=== PATIENT | female | born 1950 | race Caucasian/White ===

== ENCOUNTER 2019-11-23 13:16 | Outpatient (CLI) | payer BC, SELFPAY ==
--- NOTE | ~2019-11-23 | CT_ITS ---
EXAMINATION: CT lung screening EXAM DATE: 11/23/2019 14:14 INDICATION: Personal history of nicotine dependence. History of lung cancer. TECHNIQUE: Spiral low dose CT of the chest without contrast. Axial, coronal and sagittal images were reviewed. The dose-length product (DLP) for this examination was 91.78 mGy-cm. The exposure was ta ilored according to patient size (auto mA exposure control), and iterative reconstruction (ASIR) was used as additional dose reduction technique. Comparison is made to prior examination from 10/19/2018. FINDINGS: There is been interval right-sided partial pneumonectomy, previously seen nodule no longer present. Small region of left upper lobe scarring. Triangular-shaped pleural-based right upper lobe nodule measuring 5 mm, unchanged. No suspicious pulmonary nodules. Tracheobronchial tree is patent. There is no mediastinal, hilar or axillary lymphadenopathy. There are no pleural or pericardial e ffusions. There is no pneumothorax. Heart normal in size. No evidence of coronary arterial calc ification. There is mild emphysema. Upper abdomen is unremarkable. There is moderate thoracic spo ndylosis without osteoblastic or osteolytic lesions identified. IMPRESSION: Lung-RADS category 2C, benign appearance or behavior (<1% chance of malignancy); recommen d continued LDCT screening in 1 year. Reviewed, dictated and finalized at location A. IMPRESSION: Lung-RADS category 2C, benign appearance or behavior (<1% chance of malignancy); recommend continued LDCT screening in 1 year.
== END 2019-11-23 13:17 | disposition home or self-care (01) ==
PROVIDERS: PCP Family Medicine; Visit Provider Physician Assistant
DX: Z12.2 Encounter for screening for malignant neoplasm of respiratory organs (principal); Z87.891 Personal history of nicotine dependence
CPT/HCPCS: G0297

== ENCOUNTER → 2020-08-16 13:21 | Outpatient (CLI) | payer BC, SELFPAY ==
--- NOTE | ~2020-08-16 | MM_ITS ---
EXAMINATION: MM screening [facility] BI w marilee HISTORY: Screening TECHNIQUE: Craniocaudal and mediolateral oblique 3-D tomosynthesis images were obtained and synthetic 2-D images were generated. CAD analysis was submitted and interpreted. COMPARISON: Comparison to multiple prior studies sequentially, with oldest reviewed study dated 05/2016. BREAST PARENCHYMAL COMPOSITION: There are scattered areas of fibroglandular density. FINDINGS: There is no evidence of suspicious mass, calcification, or architectural distortion to sugg est malignancy in either breast. There has been no suspicious interval change. IMPRESSION: 1. No mammographic evidence of malignancy. 2. Recommend routine screening mammography in one year. BI-RADS Category 1: Negative Reviewed, dictated and finalized at location A.
== END ==
PROVIDERS: PCP Family Medicine; Visit Provider Family Medicine
DX: Z12.31 Encounter for screening mammogram for malignant neoplasm of breast (principal)
CPT/HCPCS: 77063; 77067

== ENCOUNTER → 2020-12-22 13:18 | Outpatient (CLI) | payer BC, SELFPAY ==
--- NOTE | ~2020-12-22 | CT_ITS ---
EXAMINATION: CT lung screening DATE: 12/22/2020 13:42 INDICATION: Personal history of nicotine dependence, current smoker with 50 pack year history TECHNIQUE: Computed tomography (CT) of the chest was performed without intravenous contrast. The dose -length product (DLP) was 90.97 mGy-cm. Automated exposure control and iterative reconstruction techn Whisk (formerly Zypsee)ue were employed. COMPARISON: 11/23/2019 FINDINGS: There are changes of right lower lobectomy. There is an unchanged 2.4 cm subsolid nodule of the left upper lobe without solid nodular component identified. Smaller, stable subsolid nodules are present in the left upper lobe. No new pulmonary nodules are identified. There is mild emphysema. No pleural effusion or pneumothorax is present. The lungs are free of acute airspace opacities. No path ologically enlarged thoracic lymph nodes are identified. The heart size is normal. There is moderate thoracic spondylosis. IMPRESSION: 1. Lung-RADS category 2: Benign appearance or behavior. Continue annual screening with noncontrast lo w-dose chest CT in 12 months. Reviewed, dictated and finalized at location B. IMPRESSION: 1. Lung-RADS category 2: Benign appearance or behavior. Continue annual screeni ng with noncontrast low-dose chest CT in 12 months.
== END ==
PROVIDERS: PCP Family Medicine; Visit Provider Physician Assistant
DX: Z12.2 Encounter for screening for malignant neoplasm of respiratory organs (principal); Z87.891 Personal history of nicotine dependence
CPT/HCPCS: 71271

== ENCOUNTER 2021-06-28 13:00 | Outpatient (CLI) | payer BC, SELFPAY ==
--- NOTE | ~2021-06-28 | DEXA_ITS ---
Bone Density Report Name: CODEY MCCALLUM Age: 70 Sex: Female Ethnicity: White Date of : 1950 Indication: postmenopausal; height loss; cancer; hysterectomy; Referring Provider: DONNA ANN Study: Bone densitometry was performed. Exam Date: June 28, 2021 Accession number: [id number] Bone Density: Region BMD T-score Z-score Classification AP Spine (L1, L3) 1.282 2.4 4.5 Normal Femoral Neck (Left) 0.882 0.3 2.1 Normal Total Hip (Left) 1.065 1.0 2.5 Normal Total Hip Bilateral Avg 1.102 1.3 2.8 Normal Femoral Neck (Right) 0.963 1.0 2.9 Normal Total Hip (Right) 1.138 1.6 3.1 Normal World Health Organization criteria for BMD impression classify patients as: Normal (T-score at or above -1.0), Osteopenia (T-score between -1.0 and -2.5), or Osteoporosis (T-score at or below -2.5). 10-year Fracture Risk: FRAX not reported because: All T-scores for Spine Total, Hip Total, Femoral Neck at or above -1.0 Clinical Information Provided by Patient: Smokes Has the following medical conditions: Cancer, Hysterectomy Patient maximum height was 66 Menopause Age: 50 Drinks caffeinated beverages Onset of menses at age 10 Number of children 0 Impression: The patient has normal bone mass. The patient has risk factors, including: smoking. Discussion: LOW RISK OF FRACTURE; BONE DENSITY IS WELL ABOVE THE MINIMUM DESIRABLE LEVEL AND ABOVE AVERAGE FOR AGE AND SEX AT ALL SKELETAL SITES TESTED. This person's bone density is above expected limits for age and sex. This is rarely clinically significant, but should be pursued if there are significant musculoskeletal complaints. The patient should follow a healthful lifestyle (good nutrition with adequate calcium and vitamin D, and appropriate weight-bearing exercise). Follow-Up: Consider repeating this study in 5 years or sooner if there is some new clinical indication. Reported by: [facility] on 06/28/2021 1:27:00 PM. Reviewed, dictated and finalized at location AKenyetta NOVA
== END 2021-06-28 13:01 | disposition home or self-care (01) ==
PROVIDERS: PCP Family Medicine; Visit Provider Physician Assistant
DX: Z78.0 Asymptomatic menopausal state (principal)
CPT/HCPCS: 77080

== ENCOUNTER → 2021-12-24 11:47 | Outpatient (CLI) | payer BC, SELFPAY ==
--- NOTE | ~2021-12-24 | CT_ITS ---
EXAMINATION:CT lung screening DATE: 12/24/2021 12:01 INDICATION: Personal history of nicotine dependence. Current smoker with 50 pack year history. TECHNIQUE: Computed tomography (CT) of the chest was performed without intravenous contrast. Automate d exposure control and iterative reconstruction technique were employed. The dose-length product (DLP ) was 109.52 mGy-cm. COMPARISON: Chest CT 12/22/2020 FINDINGS: There is mild emphysema. There are changes of right lower lobectomy. There is a stable 3 mm nodule in left upper lobe. There is a stable 2.3 cm groundglass opacity in left upper lobe. There is a stable 7 mm groundglass opacity in left lower lobe. No pleural effusion. The heart size is normal. No pericardial effusion. There is severe thoracic spondylosis. There is mild chronic anterior wedgin g of multiple vertebral bodies. IMPRESSION: 1. Lung-RADS category 2: Benign appearance or behavior. Continue annual screening with noncontrast lo w-dose chest CT in 12 months. Reviewed, dictated and finalized at location A. IMPRESSION: 1. Lung-RADS category 2: Benign appearance or behavior. Continue annual screeni ng with noncontrast low-dose chest CT in 12 months.
--- NOTE | ~2021-12-24 | MM_ITS ---
EXAMINATION: MM screening [facility] BI w marilee HISTORY: Screening TECHNIQUE: Craniocaudal and mediolateral oblique 3-D tomosynthesis images were obtained and synthetic 2-D images were generated. CAD analysis was submitted and interpreted. COMPARISON: 08/16/2020, 04/02/2019 bilateral screening mammogram examinations BREAST PARENCHYMAL COMPOSITION: There are scattered areas of fibroglandular density. FINDINGS: Stable mild fibroglandular asymmetry. Scattered occasional bilateral benign calcifications. There is no evidence of suspicious mass, calcification, or architectural distortion to suggest malig divina in either breast. There has been no suspicious interval change. IMPRESSION: 1. No mammographic evidence of malignancy. 2. Recommend routine screening mammography in one year. BI-RADS Category 2: Benign finding(s). Reviewed, dictated and finalized at location A.
== END ==
PROVIDERS: PCP Family Medicine; Visit Provider Physician Assistant
DX: Z12.31 Encounter for screening mammogram for malignant neoplasm of breast (principal); Z12.2 Encounter for screening for malignant neoplasm of respiratory organs; Z87.891 Personal history of nicotine dependence
CPT/HCPCS: 71271; 77063; 77067

== ENCOUNTER → 2022-03-15 14:50 | Outpatient (CLI) | payer BC, SELFPAY ==
--- NOTE | ~2022-03-15 | XR_ITS ---
XR knee RT 3V DATE: 03/15/2022 15:01 INDICATION: Right knee pain for many years. No injury. TECHNIQUE: AP, lateral, sunrise views COMPARISON: None FINDINGS: There is joint space narrowing and periarticular spurring of the patellofemoral and medial compartments and slight periarticular spurring of the lateral compartment, consistent with tricompart ment osteoarthritis. No fracture or dislocation or joint effusion. No radiopaque intra-articular loose body or chondrocalc inosis is noted. No periosteal reaction or bone destruction. IMPRESSION: Moderate osteoarthritis, most prominent at the patellofemoral and medial compartments Reviewed, dictated and finalized at location B. 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
== END ==
PROVIDERS: PCP Family Medicine; Visit Provider Physician Assistant
DX: M17.11 Unilateral primary osteoarthritis, right knee (principal)
CPT/HCPCS: 73562

== ENCOUNTER 2022-08-27 01:06 | Day surgery (SDC) | payer BC, SELFPAY ==
[2022-08-15 13:02] VITALS: BMI 26.9
[2022-08-27 09:13] VITALS: BP 131/77; PULSE 88; RESP 18; TEMP 36.6; O2SAT 100; BMI 26.2
--- NOTE | 2022-08-27 09:26 | WPDANESEPPF ---
Anes - Initial Pre Proc Eval Procedure: Operation Date: 08/27/22 10:30 Proposed Procedures p Colonoscopy - Himanshu Navarrete MD Date/Time: 08/27/22 09:26 Surgeon: Himanshu Navarrete MD Pre Op Diagnosis: hx colon polyps Patient Data Age: 71 Gender: F Height: 1.7 m Weight: 76.1 kg Last Vital Signs Temp 36.6 C 08/27/22 09:13 Pulse 88 08/27/22 09:13 Resp 18 08/27/22 09:13 BP 131/77 08/27/22 09:13 Pulse Ox 100 08/27/22 09:13 O2 Del Method Room Air 08/27/22 09:13 Allergies Allergy/AdvReac Type Severity Reaction Status Date / Time Penicillins Allergy Unknown unk Verified 08/27/22 09:12 Home Medications Medication Instructions Recorded Confirmed Type clobetasol 0.05 % topical cream 1 applic topical BID PRN rash #30 07/04/21 08/27/22 Rx grams conjugated estrogens 0.45 mg See Rx Instructions .Route 10/08/21 08/27/22 Rx tablet (Premarin) .COMPLEX #90 tabs tolterodine 4 mg capsule,extended See Rx Instructions .Route 10/08/21 08/27/22 Rx release 24 hr .COMPLEX #90 caps pantoprazole 40 mg tablet,delayed See Rx Instructions .Route 06/11/22 08/27/22 Rx release .COMPLEX #90 tabs dextroamphetamine-amphetamine ER 30 mg PO QAM #30 caps 08/13/22 08/27/22 Rx 30 mg 24hr capsule,extend release (Adderall XR) varenicline 0.5 mg tablet 1 mg PO DAILY 08/15/22 08/27/22 History Patient hx anesthesia problems: none Family hx anesthesia problems: none Results Review: All pre-operative results and documents have been reviewed as part of the pre-operative evaluation. [facility] Past Medical History Medical History Adenocarcinoma of right lung History of lung cancer SCHUYLER (obstructive sleep apnea) Overweight (BMI 25.0-29.9) Pure hypercholesterolemia Rash Smoking Surgical History Surgical History (Updated 08/27/22 @ 09:29 by Champ Gunter MD) S/P lobectomy of lung Family History Family History Father Family history of coronary artery disease Mother Family history of coronary artery disease Social History Social History Social History: Single Smoking packs per day: 1 Smoking cigarettes per day: 20.0 Years smoked: 60 Smoking pack-years: 60.00 Smoking status: Current every day smoker Tobacco type: cigarettes Second hand tobacco smoke exposure: No Alcohol intake: current Alcohol use details: sometimes Substance use: current Substance use type: marijuana Living arrangements: alone Occupation/Education: retired Gender identity (if verbalized by the patient): Female Sexual Orientation (if Verbalized by the Patient): Straight or Heterosexual Spiritual care concerns: No Anes - Eval Final PreProcedure Day of Procedure 08/27/22 09:26 Patient weight: overweight Heart: regular rate and rhythm Lungs: clear to auscultation and normal air movement Airway: Mallampati scale class II Neurological: alert and oriented Last oral intake: >/= 8 hours ASA classification: III Emergent: no Anesthetic plan: proceed Anesthesia type and monitoring: general GIVS Results Review: All pre-operative results and documents have been reviewed as part of the pre-operative evaluation. Informed Consent: The patient's anesthetic plan and its attendant risks and benefits were discussed with the patient/family/POA. Questions were solicited and answers provided to the satisfaction of the patient/family/POA.
[2022-08-27] MEDS: LACTATED RINGERS 1,000 ML 150 ML IV CONT (09:30)
--- NOTE | 2022-08-27 10:20 | PM.HPGS ---
History of Present Illness History of Present Illness Consent: Risks, benefits, and alternatives have been discussed and questions answered. Patient agrees to proceed with procedure. Chief complaint: hx colon polyps Narrative: Brooke Ferguson is a 71 year old female Presents for screening colonoscopy. Patient's current weight appetite and bowel movements are normal. She denies abdominal pain. She has had no bleeding. Patient has a past medical history of adenomatous colon polyps removed in 2011. She had a unremarkable colonoscopy 2017. Patient presents today for surveillance exam. Patient reports her current weight appetite bowel movement normal she denies abdominal pain. She has had no bleeding. Family history noncontributory. Review of Systems Review of Systems: Review of systems noncontributory. [facility] Past Medical History Medical History Adenocarcinoma of right lung History of lung cancer SCHUYLER (obstructive sleep apnea) Overweight (BMI 25.0-29.9) Pure hypercholesterolemia Rash Smoking Surgical History Surgical History (Updated 08/27/22 @ 09:29 by Champ Gunter MD) S/P lobectomy of lung Family History Family History Father Family history of coronary artery disease Mother Family history of coronary artery disease Social History Social History Social History: Single Smoking packs per day: 1 Smoking cigarettes per day: 20.0 Years smoked: 60 Smoking pack-years: 60.00 Smoking status: Current every day smoker Tobacco type: cigarettes Second hand tobacco smoke exposure: No Alcohol intake: current Alcohol use details: sometimes Substance use: current Substance use type: marijuana Living arrangements: alone Occupation/Education: retired Gender identity (if verbalized by the patient): Female Sexual Orientation (if Verbalized by the Patient): Straight or Heterosexual Spiritual care concerns: No Meds Home Medications and Allergies Home Medications Medication Instructions Recorded Confirmed Type clobetasol 0.05 % topical cream 1 applic topical BID PRN rash #30 07/04/21 08/27/22 Rx grams conjugated estrogens 0.45 mg See Rx Instructions .Route 10/08/21 08/27/22 Rx tablet (Premarin) .COMPLEX #90 tabs tolterodine 4 mg capsule,extended See Rx Instructions .Route 10/08/21 08/27/22 Rx release 24 hr .COMPLEX #90 caps pantoprazole 40 mg tablet,delayed See Rx Instructions .Route 06/11/22 08/27/22 Rx release .COMPLEX #90 tabs dextroamphetamine-amphetamine ER 30 mg PO QAM #30 caps 08/13/22 08/27/22 Rx 30 mg 24hr capsule,extend release (Adderall XR) varenicline 0.5 mg tablet 1 mg PO DAILY 08/15/22 08/27/22 History Allergies Allergy/AdvReac Type Severity Reaction Status Date / Time Penicillins Allergy Unknown unk Verified 08/27/22 09:12 Vital Signs Vital Signs - 24 hr 08/27/22 09:13 Temperature 97.8 F Pulse Rate 88 Respiratory Rate 18 Blood Pressure 131/77 Pulse Oximetry 100 Oxygen Delivery Room Air Exam Narrative: Physical exam reveals patient to be alert. Vital signs stable. HEENT exam is unremarkable. Patient is anicteric. Lungs are clear to auscultation and percussion. Heart is without murmur or extra sounds. Abdomen bowel sounds present soft nontender with no organomegaly. Digital external rectal exam is normal. Assessment and Plan Assessment and plan (1) History of colon polyps: Code(s): Z86.010 - Personal history of colonic polyps Status: Acute Assessment and Plan: Patient has a history of colon polyps. Plan for surveillance colonoscopy now. Further recommendations may be given after endoscopy.
[2022-08-27 10:58] VITALS: BP 95/52; PULSE 70; RESP 23; O2SAT 95
[2022-08-27 11:08] VITALS: BP 98/49; PULSE 74; RESP 21; O2SAT 98
[2022-08-27 11:18] VITALS: BP 117/55; PULSE 74; RESP 20; O2SAT 100
== END 2022-08-27 11:25 | disposition home or self-care (01) ==
PROVIDERS: PCP Family Medicine; Visit Provider Internal Medicine Gastroenterology
PROC: 0DJD8ZZ Inspection of Lower Intestinal Tract, Via Natural or Artificial Opening Endoscopic (ICD-10-PCS; CPT 45378; principal; 2022-08-27 10:30)
DX: Z12.11 Encounter for screening for malignant neoplasm of colon (principal); K64.8 Other hemorrhoids; Z86.010 Personal history of colon polyps; G47.33 Obstructive sleep apnea (adult) (pediatric); Z85.118 Personal history of other malignant neoplasm of bronchus and lung; Z90.2 Acquired absence of lung [part of]; F17.210 Nicotine dependence, cigarettes, uncomplicated; F12.90 Cannabis use, unspecified, uncomplicated
CPT/HCPCS: 45378; J2704; J7120

== ENCOUNTER → 2022-12-25 12:43 | Outpatient (CLI) | payer OTHER, SELFPAY ==
--- NOTE | ~2022-12-25 | CT_ITS ---
EXAMINATION: CT lung screening DATE: 12/25/2022 13:13 INDICATION: Personal history nicotine dependence, current smoker with 51 pack year history TECHNIQUE: Computed tomography (CT) of the chest was performed without intravenous contrast. The dose -length product (DLP) was 85.15 mGy-cm. Automated exposure control and iterative reconstruction techn ique were employed. COMPARISON: 12/24/2021 FINDINGS: There is mild emphysema. There is a stable 2.4 cm groundglass nodule of the left upper lobe . Again seen are smaller subsolid nodule in the left upper lobe. The lungs are free of acute opacitie s. No pleural effusion or pneumothorax. No pathologically enlarged thoracic lymph nodes are identifie d. The heart size is normal. There is severe thoracic spondylosis. There are changes of right lower l obectomy. IMPRESSION: 1. Lung-RADS category 2: Benign appearance or behavior. Continue annual screening with noncontrast lo w-dose chest CT in 12 months. Reviewed, dictated and finalized at location F. IMPRESSION: 1. Lung-RADS category 2: Benign appearance or behavior. Continue annual screeni ng with noncontrast low-dose chest CT in 12 months.
== END ==
PROVIDERS: PCP Family Medicine; Visit Provider Physician Assistant
DX: Z12.2 Encounter for screening for malignant neoplasm of respiratory organs (principal); F17.210 Nicotine dependence, cigarettes, uncomplicated
CPT/HCPCS: 71271

== ENCOUNTER → 2023-03-08 11:23 | Outpatient (CLI) | payer OTHER, SELFPAY ==
--- NOTE | ~2023-03-08 | MM_ITS ---
EXAMINATION: MM screening hank BI w marilee HISTORY: Screening mammogram TECHNIQUE: Craniocaudal and mediolateral oblique 3-D tomosynthesis images were obtained and synthetic 2-D images were generated. CAD analysis was submitted and interpreted. COMPARISON: 12/24/2021, 08/16/2020, 04/02/2019 bilateral screening mammogram examinations BREAST PARENCHYMAL COMPOSITION: There are scattered areas of fibroglandular density. FINDINGS: Multiple asymmetries are noted on the left. Diagnostic left mammogram and left breast ultra sound examination are recommended. No suspicious mass, architectural distortion, malignant calcification, skin thickening or retraction or significant new or developing density is noted in the right breast. There is no evidence of suspic ious mass, calcification, or architectural distortion to suggest malignancy in either breast. There h as been no suspicious interval change. IMPRESSION: 1. Left mammographic asymmetries 2. Diagnostic left mammogram and left breast ultrasound examination are recommended BI-RADS Category 0: Incomplete: Needs additional imaging evaluation. Reviewed, dictated and finalized at location A. OR CIVIL ENGINEER IMPRESSION: 1. Left mammographic asymmetries 2. Diagnostic left mammogram and left breast ultrasound examination are recomme nded BI-RADS Category 0: Incomplete: Needs additional imaging evaluation.
== END ==
PROVIDERS: PCP Family Medicine; Visit Provider Family Medicine
DX: Z12.31 Encounter for screening mammogram for malignant neoplasm of breast (principal); R92.8 Other abnormal and inconclusive findings on diagnostic imaging of breast
CPT/HCPCS: 77063; 77067

== ENCOUNTER → 2023-04-18 14:08 | Outpatient (CLI) | payer OTHER, SELFPAY ==
--- NOTE | ~2023-04-18 | MMUS_ITS ---
EXAMINATION: MM diagnostic hank LT w marilee, US breast LT limited HISTORY: Left breast asymmetries on screening mammogram TECHNIQUE: Additional 3-D tomosynthesis images of the left breast were performed and synthetic 2-D im ages were generated. CAD analysis was submitted and interpreted. High resolution limited left breast ultrasound was performed. COMPARISON: 03/08/2023, 12/24/2021, 08/16/2020 BREAST PARENCHYMAL COMPOSITION: There are scattered areas of fibroglandular density. FINDINGS: MAMMOGRAPHIC FINDINGS: There is a return to baseline fibroglandular appearance with spot compression of the left breast in t he areas of asymmetry in the outer breast and posterior breast. There is a 12 mm oval, obscured, low density mass in the anterior third of the breast at the 4:00 location, 4 cm from the nipple which has a stable appearance with spot compression when compared to prior mammograms. ULTRASOUND: There are mildly dilated ducts near the nipple. Cysts of the lower outer breast measure up to 3 mm. IMPRESSION: 1. No mammographic or sonographic evidence of malignancy. 2. Recommend routine screening mammography in one year. BI-RADS Category 2: Benign finding(s). Reviewed, dictated and finalized at location A. NESS CONTROLLER IMPRESSION: 1. No mammographic or sonographic evidence of malignancy. 2. Recommend routine screening mammography in one year. BI-RADS Category 2: Benign finding(s).
== END ==
PROVIDERS: PCP Physician Assistant; Visit Provider Physician Assistant
DX: R92.8 Other abnormal and inconclusive findings on diagnostic imaging of breast (principal)
CPT/HCPCS: 76642; 77061; 77065; G0279

== ENCOUNTER 2024-01-27 12:43 | Outpatient (CLI) | payer BC, SELFPAY ==
--- NOTE | ~2024-01-27 | CT_ITS ---
CT Scan of the Chest without Contrast: Clinical Indication: Lung cancer screening, nicotine dependence Technique: Contiguous sections were acquired throughout the chest without intravenous contrast. Dose reduction technique was used on this scan by utilizing automated exposure control and iterative recon struction technique. The dose-length product (DLP) was 67.46 mGy-cm. COMPARISON: 12/25/2022 Findings: There is no evidence of any significant mediastinal, hilar or axillary lymphadenopathy. The mediastin al soft tissues appear normal. There is no evidence of pleural or pericardial effusion. There is a vague 13 mm there is a 3.0 x 2.0 cm pseudocavitary cystic and groundglass lesion in the le ft upper lobe (axial image 39). 3 mm right lower lobe pulmonary nodule present (axial image 75). Grou ndglass opacity in the right upper lobe (axial image 31). Images through the upper abdomen reveal no abnormalities. There is advanced degenerative spondylosis of the mid to upper thoracic spine. Impression: Lung RADS 3: Probably benign. Six-month follow-up CT recommended. Reviewed, dictated and finalized at location M. Impression: Lung RADS 3: Probably benign. Six-month follow-up CT recommended.
== END 2024-01-27 12:44 | disposition home or self-care (01) ==
LOC: MICIMG 12:44
PROVIDERS: PCP Family Medicine; Visit Provider Physician Assistant Medical
DX: F17.200 Nicotine dependence, unspecified, uncomplicated (principal); R92.8 Other abnormal and inconclusive findings on diagnostic imaging of breast; R91.8 Other nonspecific abnormal finding of lung field
CPT/HCPCS: 71271

== ENCOUNTER 2024-07-29 10:43 | Outpatient (CLI) | payer BC, SELFPAY ==
--- NOTE | ~2024-07-29 | CT_ITS ---
CT Scan of the Chest without Contrast: Clinical Indication: Abnormal finding of lung field Technique: Contiguous sections were acquired throughout the chest without intravenous contrast. Dose reduction technique was used on this scan by utilizing automated exposure control and iterative recon struction technique. The dose-length product (DLP) was 155.87 mGy-cm. COMPARISON: 01/27/2024 Findings: There is no evidence of any significant mediastinal, hilar or axillary lymphadenopathy. The mediastin al soft tissues appear normal. There is no evidence of pleural or pericardial effusion. Stable groundglass opacity in the peripheral right upper lobe (axial image 26 are available) disease. Stable cystic/cavitary lesion in the left upper lobe (axial image 36). Stable scarring right middle lobe. Images through the upper abdomen reveal no abnormalities. Impression: Stable thin-walled cavitary/cystic lesion left upper lobe. This could be a benign lesion versus possi bility of bronchoalveolar cell carcinoma. Continued follow-up advised. Stable irregular groundglass opacity right upper lobe. Reviewed, dictated and finalized at location M. Impression: Stable thin-walled cavitary/cystic lesion left upper lobe. This could be a carlotta gn lesion versus possibility of bronchoalveolar cell carcinoma. Continued follo w-up advised. Stable irregular groundglass opacity right upper lobe.
== END 2024-07-29 10:44 | disposition home or self-care (01) ==
LOC: MICIMG 10:43
PROVIDERS: PCP Family Medicine; Visit Provider Physician Assistant Medical
DX: R91.8 Other nonspecific abnormal finding of lung field (principal); F17.200 Nicotine dependence, unspecified, uncomplicated; Z85.118 Personal history of other malignant neoplasm of bronchus and lung
CPT/HCPCS: 71250

== ENCOUNTER 2024-10-20 09:45 | Outpatient (CLI) | payer BC, SELFPAY ==
--- NOTE | ~2024-10-20 | MMUS_ITS ---
EXAMINATION: US breast LT complete, MM diagnostic hank BI w marilee HISTORY: Breast mass seen on recent CT examination. TECHNIQUE: Additional 3-D tomosynthesis images of the breasts were performed and synthetic 2-D images were generated. CAD analysis was submitted and interpreted. High resolution complete left breast ult rasound was performed. COMPARISON: Comparison to multiple prior studies sequentially, with oldest reviewed study dated 01/[address] dated 07/29/2024. BREAST PARENCHYMAL COMPOSITION: Not dense: There are scattered areas of fibroglandular density. FINDINGS: MAMMOGRAPHIC FINDINGS: The breasts are stable. No new masses, calcifications or architectural distortion are identified in e ither breast to suggest malignancy. ULTRASOUND: Complete US of all 4 quadrants of the left breast/s and retroareolar region was reviewed. At 1:00, 2 cm from the nipple there is a 6 mm cyst. At 3:00 near the nipple there is mildly prominent ducts. At 7:00, 5 cm from the nipple there are 2 adjacent cysts largest measuring 3 mm. At 11:00, 4 cm from the nipple there is a 3 mm cyst. No suspicious masses are identified in the left breast to suggest malig divina. IMPRESSION: 1. No evidence for malignancy in either breast. 2. . Routine yearly screening mammogram and regular clinical breast examination are recommended. BI-RADS Category 2: Benign finding(s). Reviewed, dictated and finalized at location A. IMPRESSION: 1. No evidence for malignancy in either breast. 2. . Routine yearly screening mammogram and regular clinical breast examination are recommended. BI-RADS Category 2: Benign finding(s).
== END 2024-10-20 09:46 | disposition home or self-care (01) ==
PROVIDERS: PCP Family Medicine; Visit Provider Physician Assistant
DX: R92.8 Other abnormal and inconclusive findings on diagnostic imaging of breast (principal)
CPT/HCPCS: 76641; 77062; 77066; G0279

== ENCOUNTER 2024-12-16 16:45 | Outpatient (CLI) | payer BC, SELFPAY ==
--- OUTSIDE RECORDS SUMMARY | 2019-04-06 01:00 | XMS_ITS | Encounter Summary ---
Author Organization [facility] Healthcare Address [address] [place] [address] Care Team Providers Care Core Shaper Name Role Phone Unavailable Primary Care Provider Unavailabl e Reason for Visit * Diagnostic Imaging (Routine) - Pending Review Specialty Diagnoses / Procedures Referred By Kelly t Referred To Contact Procedures Breast Imaging Screening Outside Reference Transcribed Order, Provider Referral ID Status Reason Start Date Expiration Date V isits Requested Visits Authorized [id number] Pending Review 09/09/2024 10/09/2025 1 1 Encounter Details Date Type Department Care Team (Late st Contact Info) Description 04/06/2019 Hospital Encounter [facility] [address] [place] [id number] Social History Tobacco Use Types Packs/Day Years Used Date Smoking Tobacco: Former Cigarettes 1 58.7 S tarted: 1967 Passive Smoke Exposure: Past Comments:Working on quitting - 5/day [facility] Utilities Answer Date Recorded In the past 12 months has [facility] [employer], gas, oil, or water [employer] threatened to shut off services in your home? No 05/30/2023 Social Connection and Isolation Panel Answer Date Recorded In a typical week, how many times do you talk on the phone with family, friends, or neighbors? More than three times a week 05/30/2023 How often do you get togethe r with friends or relatives? More than three times a week 05/30/2023 How often do you attend chur ch or latter day services? Never 05/30/2023 Do you belong to any clubs o r organizations such as adventist groups, unions, fraternal or athletic groups, or school groups? No 05/30/2023 How often do you attend meet ings of the clubs or organizations you belong to? Never 05/30/2023 Are you , , di vorced, , never , or living with a partner? 05/30/2023 AUDIT-C Answer Date Recorded Q1: How often do you have a drink containing alc ohol? 2-3 times a week 09/16/2024 Q2: How many drinks containi ng alcohol do you have on a typical day when you are drinking? 1 or 2 09/16/2024 Q3: How often do you have si x or more drinks on one occasion? Less than monthly 09/16/2024 Overall Financial Resource Strain (CARDIA) Answe r Date Recorded How hard is it for you to pa y for the very basics like food, housing, medical care, and heating? Not very hard 05/30/2023 Hunger Vital Sign Answer Date Recorded Within the past 12 months, y ou worried that your food would run out before you got the money to buy more. Never true 05/30/19 24 Within the past 12 months, t he food you bought just didn't last and you didn't have money to get more. Never true 05/30/2023 PRAPARE - Transportation Answer Date Re corded In the past 12 months, has l ack of transportation kept you from medical appointments or from getting medications? No 05/15 In the past 12 months, has l ack of transportation kept you from meetings, work, or from getting things needed for daily living? No 05/30/2023 Housing Stability Vital Sign Answer Mani e Recorded In the last 12 months, was t here a time when you were not able to pay the mortgage or rent on time? No 05/30/2023 In the last 12 months, how many places have you lived? 1 05/30/2023 In the last 12 months, was t here a time when you did not have a steady place to sleep or slept in a care home (including now)? No 05/30/2023 Personal Safety Answer Date Recorded Have you ever been in or are you currently in a harmful physical or emotional relationship or is someone making you feel afraid or unsafe? Denies 09/16/2024 Comments No Sex and Gender Information Value Date Recorded Sex Assigned at Not on file Legal Sex Female 9:07 PM COUNTER TACKER Gender Identity Female 03/19/2023 11:00 AM COUNTER TACKER Sexual Orientation Straight 03/19/2023 11 :00 AM COUNTER TACKER documented as of this encounter Functional Status * AUDIT-C Score Answer Date of Assessment Author 4 09/16/2024 10:58 AM Neel Alfaro RN * Question Answer Date of Assessment Author Q1: How often do you have a drink containing alcohol? 2-3 times a week 09/16/2024 10:58 AM Alejandra Alfaro RN Q2: How many drinks containing alcohol do you have on a typical day when you are drinking? 1 or 2 09/16/2024 10:58 AM Alejandra Alfaro RN Q3: How often do you have six or more drinks on one occasion? Less than monthly 09/16/2024 10:58 AM Aeljandra Alfaro RN documented as of this encounter Plan of Treatment Not on file documented as of this encounter Procedures Procedure Name Priority Date/Time Associated Diagnosis Comments BREAST IMAGING MG SCREENING OUTSIDE REFERENCE Routine 04/06/2019 12:00 AM COUNTER TACKER documented in this encounter Results * Breast Imaging Screening Outside Reference (04/06/2019 12:00 AM COUNTER TACKER) Impressions [facility] - 09/09/2024 1:46 PM CDT These images are for Reference purposes only and have not been reviewed by [facility] Radiology. There will be no report generated by a [facility] Radiologist. Narrative [facility] - 09/09/2024 1:46 PM CDT EXAMINATION: Images For Reference Purposes Only us Provider Transcribed Order IMG MAMMO PROCEDURES Final Result [facility] documented in this encounter Visit Diagnoses Not on filedocumented in this encounter
--- OUTSIDE RECORDS SUMMARY | 2020-08-16 | XMS_ITS | Encounter Summary ---
Author Organization [facility] Healthcare Address [address] [place] [address] Care Team Providers Care Fur Blower Name Role Phone Unavailable Primary Care Provider Unavailabl e Reason for Visit * Diagnostic Imaging (Routine) - Pending Review Specialty Diagnoses / Procedures Referred By Kelly t Referred To Contact Procedures Breast Imaging Screening Outside Reference Transcribed Order, Provider Referral ID Status Reason Start Date Expiration Date V isits Requested Visits Authorized [id number] Pending Review 09/09/2024 10/09/2025 1 1 Encounter Details Date Type Department Care Team (Late st Contact Info) Description 08/16/[address] [facility] [address] [place] [id number] Social History Tobacco Use Types Packs/Day Years Used Date Smoking Tobacco: Former Cigarettes 1 58.7 S tarted: 1967 Passive Smoke Exposure: Past Comments:Working on quitting - 5/day [facility] Utilities Answer Date Recorded In the past 12 months has [employer], [employer], oil, or water [employer] threatened to shut off services in your [...] often do you attend chur ch or jew services? Never 05/30/2023 Do you belong to any clubs o r organizations such as samaritan groups, unions, fraternal or athletic groups, or [...] place to sleep or slept in a fci (including now)? No 05/30/2023 Personal Safety Answer Date Recorded Have you ever been in or are you currently in a harmful physical or emotional relationship or is someone making you feel afraid or unsafe? Denies 09/16/2024 Comments No Sex and Gender Information Value Date Recorded Sex Assigned at Not on file Legal Sex Female 9:07 PM ELASTIC ATTACHER ZIGZAG Gender Identity Female 03/19/2023 11:00 AM ELASTIC ATTACHER ZIGZAG Sexual Orientation Straight 03/19/2023 11 :00 AM ELASTIC ATTACHER ZIGZAG documented as of this encounter Functional Status * AUDIT-C Score Answer Date of Assessment Author 4 09/16/2024 10:58 AM MURRAYT Neel Garcia RN * Question Answer Date of Assessment [...] occasion? Less than monthly 09/16/2024 10:58 AM Alejandra Alfaro RN documented as of this encounter Plan of Treatment Not on file documented as of this encounter Procedures Procedure Name Priority Date/Time Associated Diagnosis Comments BREAST IMAGING MG SCREENING OUTSIDE REFERENCE Routine 08/16/2020 12:00 AM CDT documented in this encounter Results * Breast Imaging Screening Outside Reference (08/16/2020 12:00 AM CDT) Impressions [facility] - 09/09/2024 11:55 AM CDT These images are for Reference purposes only and have not been reviewed by [facility] Radiology. There will be no report generated by a [facility] Radiologist. Narrative [facility] - 09/09/2024 11:55 AM CDT EXAMINATION: Images For Reference Purposes Only us Provider Transcribed Order IMG MAMMO PROCEDURES Final Result [facility] documented in this encounter Visit Diagnoses Not on filedocumented in this encounter
--- OUTSIDE RECORDS SUMMARY | 2024-12-16 16:48 | XMS_ITS | Encounter Summary ---
Author Organization [facility] Facility Care Team Providers Care Utility Bill Complaints Investigator Name Role Phone No, Physician Primary Care Provider [phone] Bartolo Yeager MD Primary Care Provider Della Sen Unavailable [phone] Encounter Details Date Type Department Care Team (Latest Contact Info) Description 12/13/2015 Orders Only [facility] CLINCONV Provider, MD Jevon [address] [place] [id number] Social History Tobacco Use Types Packs/Day Years Used Date Smoking Tobacco: Never Assessed Comments Unknown Sex and Gender Information Value Date Recorded Sex Assigned at Not on file Legal Sex Female 9:07 PM BRANDS EDITOR Gender Identity Female 03/19/2023 11:00 AM BRANDS EDITOR Sexual Orientation Straight 03/19/2023 11 :00 AM BRANDS EDITOR documented as of this encounter Plan of Treatment Not on file documented as of this encounter Procedures Procedure Name Priority Date/Time Associated Diagnosis Comments CARDIOLOGY REPORT 12/13/2015 12: 00 AM CDT documented in this encounter Results * CARDIOLOGY REPORT (12/13/2015 12:00 AM CDT) Anatomical Region Laterality Modality Other Narrative 12/13/2015 12:00 AM CDT Ordered by an unspecified provider. us Historical Provider [facility] JOSE CUEVA Final Result documented in this encounter Visit Diagnoses Not on filedocumented in this encounter Care Teams Utility Bill Complaints Investigator Relationship Specialty Start Date End Date No, Physician PCP - General 03/18/23 04/15/23 Bartolo Yeager MD [address] [facility] [address] [place] [address] [address] [place] [address] PCP - General Family Medicine 04/16/23 Della Sen PA [address] [address] Physician Mechanical Shop Laborer Orthopedic Surgery 05/30/23 documented as of this encounter
--- OUTSIDE RECORDS SUMMARY | 2024-12-16 16:48 | XMS_ITS | Clinical Summary ---
Author Organization [facility] Address [address] [address] Phone Care Team Providers Care Marketing Operations Associate Name Role Phone Bartolo Yeager MD Primary Care Provider Medications polyethylene glycol (MIRALAX) Powder Mix the entire bottle with 64 oz of a clear liquid. Use as directed by the office for colonoscopy prep. 255 g 7 Active Social History Tobacco Use Types Packs/Day Years Used Date Smoking Tobacco: Never Assessed Comments Unknown Sex and Gender Information Value Date Recorded Sex Assigned at Not on file Legal Sex Female 10:21 PM CDT Gender Identity Not on file Sexual Orientation Not on file Plan of Treatment Health Maintenance Due Date Last Done Comments Hepatitis C Virus (HCV) Screening 1950 TdaP Immunization 1950 Cologuard 10/23/1995 Colonoscopy 10/23/1995 Colorectal Cancer Screening 10/23/1995 Immunochemical Fecal Occult Blood 10/23/1995 Pneumococcal Immunization (5 0+ years) (1 of 1 - PCV) 2000 Zoster Immunization (1 of 2) 2000 SARS-COV-2 Immunization (1 - 2023-25 season) 2023 Influenza Immunization (#1) 2024 Respiratory Syncytial Virus (RSV) Immunization (Adult) (1 - 1-dose 75+ series) 2025 Hepatitis B Immunization Aged Out No longer eligible based on patient's age to complete this topic Human Papillomavirus (HPV) Immunization Aged Out No longer eligible b ased on patient's age to complete this topic Meningococcal Immunization (ACWY) Aged Out No longer eligible based on patient's age to complete this topic Rotavirus Immunization Aged Out No lo nger eligible based on patient's age to complete this topic Insurance [facility] Care Teams Marketing Operations Associate Relationship Specialty Start Date End Date Bartolo Yeager MD [address] [facility] [address] [place] [address] PCP - General Family Medicine 02/05/17
--- OUTSIDE RECORDS SUMMARY | 2024-12-16 16:48 | XMS_ITS | Encounter Summary ---
Author Organization [facility] Facility Care Team Providers Care Electronic Induction Hardener Name Role Phone No, Physician Primary Care Provider [phone] Bartolo Yeager MD Primary Care Provider Della Sen Unavailable [phone] Encounter Details Date Type Department Care Team (Latest Contact Info) Description 11/21/2015 Orders Only [facility] CLINCONV Provider, MD Jevon [address] [place] [address] Social History Tobacco Use Types Packs/Day Years Used Date Smoking Tobacco: Never Assessed Comments Unknown Sex and Gender Information Value Date Recorded Sex Assigned at Not on file Legal Sex Female 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 us Historical Provider Final Res ult documented in this encounter Visit Diagnoses Not on filedocumented in this encounter Care Teams Electronic Induction Hardener Relationship Specialty Start Date End Date No, Physician PCP - General 03/18/23 04/15/23 Bartolo Yeager MD [address] [facility] [address] [facility] [address] [place] [address] PCP - General Family Medicine 04/16/23 Della Sen PA [address] [address] Physician Roller [place] Orthopedic Surgery 05/30/23 documented as of this encounter
--- OUTSIDE RECORDS SUMMARY | 2024-12-16 16:48 | XMS_ITS | Clinical Summary ---
Author Organization [facility] Address [address] [place] [id number] Care Team Providers Care Fender Mechanic Name Role Phone Bartolo Yeager MD Primary Care Provider Della Sen Unavailable [phone] Allergies Active Allergy Reactions Criticality Noted Date Comments Penicillins Anaphylaxis,Angioedema High 11/21/2015 THROAT SWELLING Medications pantoprazole DR (PROTONIX) 40 mg EC tabletIndications: Stress Ulcer Prophylaxis Take 1 tablet (40 mg total) by mouth nightly 9 Active tolterodine LA (DETROL LA) 4 mg 24 hr capsuleIndications :Increased Urinary Frequency,Urinary Urgency Take 1 capsule (4 mg total) by mouth nightly Active dextroamphetamine- amphetamine XR (ADDERALL XR) 30 mg 24 hr capsuleIndications :Attention-Deficit Hyperactivity Disorder Take 1 capsule (30 mg total) by mouth every morning 3 Active terbinafine (LamiSIL) 250 mg tabletIndications: Onychomycosis Take 1 tablet (250 mg total) by mouth nightly as needed (nails) 3 Active estradioL (ESTRACE) 0.5 mg tabletIndications: hormone replacement Take 1 tablet (0.5 mg total) by mouth nightly 5 Active valACYclovir (VALTREX) 500 mg tabletIndications: Prophylaxis, Medical Take 1 tablet (500 mg total) by mouth nightly 5 Active clindamycin (CLEOCIN) 150 mg capsuleIndications :Prophylaxis, Surgical,dental appts Take 4 capsules (600 mg total) by mouth as needed (prior to dental appt) 5 Active varenicline tartrate (CHANTIX) 1 mg tabletIndications: Smoking Cessation Take 1 tablet (1 mg total) by mouth 2 (two) times a day 5 Active acetaminophen ER (TYLENOL) 650 mg 8 hr tabletIndications: Pain Take 2 tablets (1,300 mg total) by mouth every 8 (eight) hours as needed for pain Active cetirizine (ZyrTEC) 10 mg tabletIndications: Allergic Rhinitis Take 1 tablet (10 mg total) by mouth every morning Active senna (SENOKOT) 8.6 mg tabletIndications: constipation Take 1 tablet by mouth 2 (two) times a day 60 tablet 5 09/19/19 26 Active oxyCODONE (ROXICODONE) 5 mg immediate release tabletIndications: Pain Take 1 tablet (5 mg total) by mouth every 4 (four) hours as needed for pain 15 tablet 5 Active gabapentin (NEURONTIN) 300 mg capsuleIndications :Nerve pain Take 1 capsule (300 mg total) by mouth 3 (three) times a day 90 capsule 5 10/06/19 26 Active Active Problems Patient Care Coordination No te Formatting of this note migh t be different from the original. This is a 73 year old female presenting to us at the request of Dr. Bartolo Yeager for an evaluation of a pulmonary nodule. She has a medical history significant for ADHD, HLD, IFG and SCHUYLER. She is a current smoker smoking less than 1 ppd and is taking Varenicline. She also has a history of a lung cancer and underwent a right VATs right lower lobectomy on 12/17/2018. Her final pathology was consistent with a stage 1, T1cN0 invasive adenocarcinoma. She had 17 negative lymph nodes. She underwent a chest CT on 07/29/24 that showed no evidence of any significant mediastinal, hilar or axillary lymphadenopathy. The mediastinal soft tissues appear normal. There is no evidence of pleural or pericardial effusion. Stable ground glass opacity in the peripheral right upper lobe disease. Stable cystic/cavitary lesion in the left upper abdomen reveal no abnormalities. She is here for further surgical evaluation and discussion. Problem Noted Date Diagnosed Date Acute pain 09/16/2024 Assessment & Plan (09/16/2024 10:40 AM CDT): S/p Robotic assisted segmentectomy left upper lobe - scheduled tylenol - prn oxycodone -dilaudid for breakthrough pain SCHUYLER (obstructive sleep apnea) 09/16/2024 Assessment & Plan (09/16/2024 10:41 AM CDT): Non compliant with prescribed CPAP Wears mouth guard at home - SCHUYLER precautions Current smoker 09/16/2024 Assessment & Plan (09/16/2024 10:42 AM CDT): [place] abstinence GERD (gastroesophageal reflux disease) Assessment & Plan (09/16/2024 10:42 AM CDT): Continue home PPI ADD (attention deficit disorder) 09/16/2024 Assessment & Plan (09/16/2024 10:43 AM CDT): - holding home Adderall in acute post operative setting Lung nodule 09/07/2024 Assessment & Plan (09/17/2024 9:23 AM CDT): VATS RLL in 09/16 Robotic assisted segmentectomy left upper lobe - monitor chest tube output and for potential air leak - plan for repeat CXR this AM on water seal - wean oxygen for saturation > 90, pulmonary hygiene - PT/OT - regular diet - dvt ppx with sequentials and lovenox Status post right knee replacement 06/12/2023 Arthritis of right knee 05/29/2023 Primary osteoarthritis of right knee 04/17/2023 Encounters Date Type Department Care Team Description 10/05/2024 2:00 PM CDT Office Visit [facility] Medicine Surgery [facility] Floor 5 [place] [address] Kamille Marie MD Nerve pain (Primary Dx); Muscle spasm 10/05/2024 12:41 PM CDT - 10/05/2024 11:59 PM CDT Hospital Encounter [facility] [address] [place], [place] [address] Floor 8 [place] [address] Malignant neoplasm of lower lobe of right lung (HCC) Discharge Disposition: Discharge to home or self care 10/04/2024 [facility] [address] [place] [address] Efrain Mukherjee RMA 09/20/2024 Orders [facility] [address] [facility] Floor 5 [place] [phone] Edward Harry, RACIEL Malignant neoplasm of lower lobe of right lung (HCC) (Primary Dx) 09/16/2024 11:57 AM CDT Anesthesia Event [facility] Operating Room 1 [place] [id number] Edward Valdovinos MD Dippolito, Jenny Irene, NP 09/16/2024 10:35 AM CDT - 09/16/2024 1:40 PM CDT Surgery [facility] Operating Room 1 [place] [id number] Kamille Marie MD LEFT APICAL POSTERIOR SEGMENTECTOMY - ROBOTIC ASSISTED 09/16/2024 7:15 AM CDT - 09/18/2024 5:37 PM CDT Hospital Encounter [address] [phone] Kamille Marie MD Lung nodule Discharge Disposition: Discharge to home or self care from Last 3 Months Immunizations Immunization Administration Dates Next Due Hep B Vaccine 12/29/1992,07/25/1992,06/23/1992 Influenza, Quadrivalent, Hig h Dose, Preservative Free, Intrr 01/10/2023,01/21/2022 Influenza, Quadrivalent, Spl it, Preservative Free, Intramuscular 05/09/2021 Influenza, Split 01/28/2013 Pneumococcal Conjugate Pcv20 01/23/2023 RSV Vaccine, Pref, Recombina nt, Subunit, Adjuvanted, PF, IM (Arexvy) 01/23/2023 ZOSTER Recombinant 09/24/2021,07/10/2021 Surgical History Surgery Date Site/Laterality Comments HYSTERECTOMY 04/14/1982 - 04/13/1983 TOTAL KNEE ARTHROPLASTY 04/14/2015 - 04/13/2016 Left LUNG REMOVAL, PARTIAL 04/14/2019 - 04/13/2020 Right COLONOSCOPY 04/14/2022 - 04/13/2023 N/A KNEE ARTHROPLASTY 04/14/2023 - 04/13/2024 Right BREAST CYST EXCISION 04/14/1958 - 04/13/1959 Medical History Medical History Date Comments ADHD (attention deficit hyperactivity disorder) Cancer (HCC) 2019 Lung - RLL remov ed Gastric reflux Peripheral neuropathy Sleep apnea Motion sickness Family History Medical History Relation Name Comments Cancer Father Heart disease Father Diabetes Mother Relation Name Status Comments Father Mother Social History Tobacco Use Types Packs/Day Years Used Date Smoking Tobacco: Former Cigarettes 1 58.7 S tarted: 1967 Passive Smoke Exposure: Past Comments:Working on quitting - 5/day [employer] Answer Date Recorded In the past 12 months has [employer], gas, oil, or water company threatened to shut off services in your [...] often do you attend chur ch or yazidism services? Never 05/30/2023 Do you belong to any clubs o r organizations such as quaker groups, unions, fraternal or athletic groups, or [...] place to sleep or slept in a usp (including now)? No 05/30/2023 Personal Safety Answer Date Recorded Have you ever been in or are you currently in a harmful physical or emotional relationship or is someone making you feel afraid or unsafe? 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 Obstetrics History Last Filed Vital Signs Vital Sign Reading Time Taken Comments Blood Pressure 127/74 10/05/2024 2:27 PM CDT Pulse 77 10/05/2024 2:27 PM CDT Temperature 36.3 C (97.4 F) 10/05/2024 2:27 PM CDT Respiratory Rate 18 10/05/2024 2:27 PM CDT Oxygen Saturation 99% 10/05/2024 2:27 PM CDT Inhaled Oxygen Concentration - - Weight 69.6 kg (153 lb 6.4 oz) 10/05/2024 2:27 P M CDT Height 162.6 cm (5' 4) 09/16/2024 8:55 PM CDT Body Mass Index 26.33 09/16/2024 8:55 PM CDT Plan of Treatment Health Maintenance Due Date Last Done Comments Breast Cancer Screening-Mammogram 1950 Colon Cancer Screening-Colonoscopy 1950 Depression Screening 1950 Hepatitis C Screening 1950 Osteoporosis Screening-Bone Density Scan 1950 DTaP/Tdap/Td Vaccine (1 - Tdap) 1961 Well Visit 65+ 10/23/2015 Covid-19 Vaccine (2023- 5 season) 2023 01/10/2023, 08/23/2022, 01/08/2022, Additional history exists Influenza Vaccine (#1) 2024 , 01/21/2022, 05/09/2021, Additional history exists Fall Risk Assessment 09/18/2025 09/18/2024 Hepatitis B Screening Completed 12/29/1992 , 07/25/1992, 06/23/1992 Zoster Vaccine Completed 09/24/2021, 07/10/2021 Pneumococcal vaccine 65+ Completed 01/23/2023 Medical Devices Implanted Type Area Correctional Probation Officer Device Identifier Shelf Expiration Date Model / Serial / Lot [employer] Simplex P Radiopaque Full Dose Cement Bone Sterile 6191-1-010 - [id number] Implanted:Qty: 1 on 05/29/2023 by Jatinder Pacheco MD at [facility] Bone Cement Right: Knee [employer] [id number] 07/12/2025 6191-1-010 / / [id number] Titanium Left: Knee Left Total Knee Arthroplasty Left: Knee [employer]/O rtho Sofia Ii [id number] Knee Oval Component Patellar Uhmwpe [id number] - [id number] Implanted:Qty: 1 on 05/29/2023 by Jatinder Pacheco MD at [facility] Right: Patella [employer]/ Ortho [id number] 08/07/2031 [id number] / / [id number] [employer]/O rtho Journey Bicruciate Stabilize Knee Right 5 Baseplate Tibial [id number] - [id number] Implanted:Qty: 1 on 05/29/2023 by Jatinder Pacheco MD at [facility] Right: Knee [employer]/ Ortho [id number] 01/28/2033 [id number] / / [id number] [employer]/O rtho Journey Ii 67.5x62.7mm Bicruciate Stabilize Knee Right 5 [id number] - [id number] Implanted:Qty: 1 on 05/29/2023 by Jatinder Pacheco MD at [facility] Right: Knee [employer]/ Ortho [id number] 02/07/2033 [id number] / / [id number] [employer]/O rtho Journey Ii 10mm Bicruciate Stabilized Right 5-6 Insert Articular [id number] - [id number] Implanted:Qty: 1 on 05/29/2023 by Jatinder Pacheco MD at [facility] Right: Knee [employer] Ortho [id number] 02/13/2031 [id number] / / [id number] Procedures Procedure Name Priority Date/Time Associated Diagnosis Comments XR CHEST PA LATERAL 2 VIEWS Schedule Routine, Read Routine (OP Routine) 10/05/2024 12:56 PM CDT Malignant neoplasm of lower lobe of right lung (HCC) XR CHEST PA LATERAL 2 VIEWS Timed 09/18/2024 2:08 PM CDT XR CHEST 1 VIEW ED Urgent/IP Urgent 09/17/2024 8:36 AM CDT EGFR Routine 09/16/2024 10:52 PM CDT PHOSPHORUS Routine 09/16/2024 10:52 PM CDT MAGNESIUM Routine 09/16/2024 10:52 PM CDT CBC WITHOUT DIFFERENTIAL Routine 09/16/2024 10:52 PM CDT BASIC METABOLIC PANEL Routine 09/16/2024 10:52 PM CDT XR CHEST 1 VIEW ED Urgent/IP Urgent 09/16/2024 3:47 PM CDT SURGICAL PATHOLOGY Routine 09/16/2024 12 :53 PM CDT Lung nodule SD AN PROCEDURE PLACEHOLDER Routine 09/16/2024 12:37 PM CDT SD AN PROCEDURE PLACEHOLDER Routine 09/16/2024 12:37 PM CDT SD AN ELECTIVE ENDOTRACHEAL AIRWAY Routine 09/16/2024 12:37 PM CDT SEGMENTECTOMY - LAPAROSCOPIC ROBOTIC ASSISTED 09/16/2024 12:06 PM CDT Lung nodule B CHECK SAMPLE STAT 09/16/2024 11:18 AM CDT from Last 3 Months Results * X-ray chest 2 views (10/05/2024 12:56 PM CDT) Anatomical Region Laterality Modality Body, Chest N/A Digital Radiogra phy 10/05/2024 1:4 0 PM CDT Impressions 10/05/2024 1:49 PM CDT Comparison with 09/18/2024. Mild bibasilar atelectasis. No pulmonary consolidation. No pleural effusion or pneumothorax. There is been interval clearing of atelectasis in the left upper lobe in this patient who is status post a left apical posterior segmentectomy. Stable cardiomediastinal silhouette. Dictated by: Brynn Wall MD The radiology attending physician has personally reviewed this study, and had reviewed and/or edited this written report and agrees with it. Electronically signed by: Angela Thompson M.D. Narrative 10/05/2024 1:49 PM CDT EXAMINATION: 2 view chest radiograph Procedure Note Angela Thompson MD - 10/05/2024 EXAMINATION: 2 view chest radiograph IMPRESSION: Comparison with 09/18/2024. Mild bibasilar atelectasis. No pulmonary consolidation. No pleural effusion or pneumothorax. There is been interval clearing of atelectasis in the left upper lobe in this patient who is status post a left apical posterior segmentectomy. Stable cardiomediastinal silhouette. Dictated by: Brynn Wall MD The radiology attending physician has personally reviewed this study, and had reviewed and/or edited this written report and agrees with it. Electronically signed by: Angela Thompson M.D. us Edward Harry NP IMG XR PROCEDURES Final Res ult * XR Chest PA Lateral 2 Views (09/18/2024 2:08 PM CDT) Anatomical Region Laterality Modality Body, Chest N/A Computed Radiogr aphy 09/18/2024 3:3 8 PM CDT Impressions 09/18/2024 3:38 PM CDT Comparison is made to 09/17/2024. Mild cardiomegaly with tortuous thoracic aorta. Nearly resolved pulmonary edema. Trace right pleural effusion. No left pleural effusion. No pneumothorax. Minimal bibasilar subsegmental atelectasis. Electronically signed by: Kendall Saez M.D. Narrative 09/18/2024 3:38 PM CDT EXAMINATION: 2 view chest radiograph Procedure Note Kendall Saez MD - 09/18/2024 EXAMINATION: 2 view chest radiograph IMPRESSION: Comparison is made to 09/17/2024. Mild cardiomegaly with tortuous thoracic aorta. Nearly resolved pulmonary edema. Trace right pleural effusion. No left pleural effusion. No pneumothorax. Minimal bibasilar subsegmental atelectasis. Electronically signed by: Kendall Saez M.D. us Kamille Marie MD IMG XR PROCEDURES Final Result * XR Chest 1 View (09/17/2024 8:36 AM CDT) Anatomical Region Laterality Modality Body, Chest N/A Digital Radiogra phy 09/17/2024 11:4 4 AM CDT Impressions 09/17/2024 11:50 AM CDT Comparison with 09/16/2024. Left thoracostomy tube in place. Decreased trace left pneumothorax. Decreased left chest wall subcutaneous emphysema. Mild bibasilar atelectasis. No pleural effusion. No right pneumothorax. Stable cardiac and mediastinal silhouette. Dictated by: Brynn Wall MD The radiology attending physician has personally reviewed this study, and had reviewed and/or edited this written report and agrees with it. Electronically signed by: Angela Thompson M.D. Narrative 09/17/2024 11:50 AM CDT EXAMINATION: 1 view chest radiograph Procedure Note Angela Thompson MD - 09/17/2024 EXAMINATION: 1 view chest radiograph IMPRESSION: Comparison with 09/16/2024. Left thoracostomy tube in place. Decreased trace left pneumothorax. Decreased left chest wall subcutaneous emphysema. Mild bibasilar atelectasis. No pleural effusion. No right pneumothorax. Stable cardiac and mediastinal silhouette. Dictated by: Brynn Wall MD The radiology attending physician has personally reviewed this study, and had reviewed and/or edited this written report and agrees with it. Electronically signed by: Angela Thompson M.D. Tatum Christina BOAT OFFICER IMG XR PROCEDURES Final Result * eGFR (09/16/2024 10:52 PM CDT) eGFR 78 >=60 mL/min/1. 73 m2 Comment: Interpretive Data Reference Interval Normal >/= 90 mL/min/1.73m2 Mildly decreased* 60 - 89 mL/min/1.73m2 Mildly to moderately decreased 45 - 59 mL/min/1.73m2 Moderately to severely decreased 30 - 44 mL/min/1.73m2 Severely decreased 15 - 29 mL/min/1.73m2 Kidney Failure < 15 mL/min/1.73m2 *Relative to young adult level Estimated glomerular filtration rate is determined by the 2020 CKD-EPI equation recommended by the National Kidney Foundation (A Unifying Approach to GFR Estimation: Recommendations of the NKF-ASK Task Force on Reassessing the Inclusion of Race in Diagnosing Kidney Disease, JASN 202). The CKD-EPI equation should not be used for patients with unstable renal function and has not been validated in children and those over 70. Current interpretive data was last reviewed 2021. Blood 09/16/2024 10:5 2 PM CDT 09/16/2024 11:36 PM CDT us Kamille Marie MD LAB BLOOD ORDERABLES Fin jude Result [facility] [place] [address] * (ABNORMAL) CBC without differential (09/16/2024 10:52 PM CDT) WBC 12.33(H) 3.80 - 9.90 K/cumm Hgb 11.6(L) 11.9 - 15.5 g/dL [facility] Hct 34.1(L) 35.6 - 45.5 % [facility] Plt 200 150 - 400 K/cumm [facility] MPV 9.2 9.1 - 12.3 fL [facility] RBC 3.69(L) 3.90 - 5.20 M/cumm [facility] MCV 92.4 81.3 - 96.4 fL [facility] MCH 31.4 27.1 - 33.3 pg [facility] MCHC 34.0 32.3 - 35.7 g/dL [facility] RDW CV 12.1 11.1 - 14.9 % [facility] RDW SD 41.1 35.7 - 48.1 fL [facility] NRBC abs 0.00 0.00 - 0.01 K/cumm [facility] Blood 09/16/2024 10:5 2 PM CDT 09/16/2024 11:36 PM CDT Kamille Marie MD LAB BLOOD ORDERABLES Fin al Result Performing Organization Address [facility] Co de Phone Number [facility] [place] [address] * Phosphorus (09/16/2024 10:52 PM CDT) Pathologist [facility] Phosphorus, pl 4.3 2.3 - 4.5 mg/dL Blood 09/16/2024 10:5 2 PM CDT 09/16/2024 11:36 PM CDT Kamille Marie MD LAB BLOOD ORDERABLES Fin al Result Performing Organization Address [facility] de Phone Number [facility] Department [place] [address] * Magnesium (09/16/2024 10:52 PM CDT) [facility] Magnesium 1.7 1.4 - 2.5 mg/dL Blood 09/16/2024 10:5 2 PM CDT 09/16/2024 11:36 PM CDT Kamille Marie MD LAB BLOOD ORDERABLES Fin al Result Performing Organization Address [facility] de Phone Number [facility] Department [place] [address] * Basic metabolic panel (09/16/2024 10:52 PM CDT) Pathologist [facility] Sodium 138 135 - 145 mmol/L Potassium, pl 4.0 3.3 - 4.9 mmol/L [facility] Chloride 101 97 - 110 mmol/L [facility] CO2 30 22 - 32 mmol/L [facility] Anion gap 7 2 - 15 mmol/L [facility] BUN 15 6 - 25 mg/dL [facility] Creatinine 0.80 0.60 - 1.10 mg/dL [facility] Glucose 168 70 - 199 mg/dL [facility] Comment: Interpretive Data Fasting glucose >/= 126 mg/dl is diagnostic for diabetes. Fasting is defined as no caloric intake for at least 8 hours. Fasting glucose between 100 mg/dl to 125 mg/dl is diagnostic of prediabetes. In a patient with classic symptoms of hyperglycemia or hyperglycemic crisis, a random glucose >/= 200 mg/dl is diagnostic for diabetes. In the absence of unequivocal hyperglycemia, results should be confirmed by repeat testing. The classification and Diagnosis of Diabetes Diabetes Care 2021; 46: S19-S40. Current interpretive data was last revised 2022. Calcium 9.7 8.5 - 10.3 mg/dL [facility] Blood 09/16/2024 10:5 2 PM CDT 09/16/2024 11:36 PM CDT Kamille Marie MD LAB BLOOD ORDERABLES Fin al Result [facility] [place] [address] * XR Chest 1 View - in ICU (09/16/2024 3:47 PM CDT) Anatomical Region Laterality Modality Body, Chest N/A Computed Radiogr aphy 09/16/2024 4:10 PM CDT Impressions 09/16/2024 4:10 PM CDT There are no prior chest radiographs for comparison. Left chest tube is in place. There is a small to moderate left-sided pneumothorax. Subcutaneous emphysema seen in the soft tissues of the left lateral chest. Minimal atelectasis seen. The heart is normal in size there is tortuous aorta. No right-sided pneumothorax. No effusions. Electronically signed by: Angela Thompson M.D. Narrative 09/16/2024 4:10 PM CDT EXAMINATION: 1 view chest radiograph Procedure Note Angela Thompson MD - 09/16/2024 EXAMINATION: 1 view chest radiograph IMPRESSION: There are no prior chest radiographs for comparison. Left chest tube is in place. There is a small to moderate left-sided pneumothorax. Subcutaneous emphysema seen in the soft tissues of the left lateral chest. Minimal atelectasis seen. The heart is normal in size there is tortuous aorta. No right-sided pneumothorax. No effusions. Electronically signed by: Angela Thompson M.D. Kamille Marie MD IMG XR PROCEDURES Final Result * Surgical pathology (09/16/2024 12:53 PM CDT) Tissue (Lymph Node, Single excision) 09/16/2024 12:53 PM CDT Tissue specimen (specimen) (Lymph Node, Single excision) 09/16/2024 12:54 PM CDT Tissue specimen (specimen) (Lymph node, dissection/region al resection) 09/16/2024 12:58 PM CDT Tissue specimen (specimen) (Lymph Node, Single excision) 09/16/2024 1:11 PM CDT Tissue specimen (specimen) (Lymph Node, Single excision) 09/16/2024 1:17 PM CDT Tissue specimen (specimen) (Lymph node, dissection/region al resection) 09/16/2024 1:20 PM CDT Tissue specimen (specimen) (Lymph Node, Single excision) 09/16/2024 1:43 PM CDT Tissue specimen (specimen) (Lung, Wedge/Excision) 09/16/2024 2:41 PM CDT Narrative PATHOLOGY [facility] - 09/22/2024 11:53 AM CDT EPIC results best viewed via link to PDF [facility] [place] [address] Note to Patients: This report may contain a detailed description of human tissue sent by a health care provider to the laboratory for pathologic evaluation. The content of this report is essential for diagnosis and may provide important critical findings. This information may be unfamiliar to patients to review without a medical professional present. It is advised that the patient review this report in the presence of a health care provider who can answer questions and explain the details. SURGICAL PATHOLOGY REPORT FINAL Patient Name: CODEY MCCALLUM Gender: F : 1950 (Age: 73) Address: [address] [place] [address] [place] [address] [facility] #: [id number] Taken:09/16/2024 Received:09/16/2024 Reported: 09/22/2024 Patient Type: [facility] Inpatient Service: Cardiothoracic Location: [place] [id number] Physician(s): Khalida Wright M.D. Diagnosis: A. Lymph node, station 9A, excision: - One lymph node, negative for malignancy (0/1) B. Lymph node, station 8, excision: - One lymph node, negative for malignancy (0/1) C. Lymph node, station 9B bundle, dissection: - Four lymph nodes, negative for malignancy (0/4) D. Lymph node, station 10, excision: - One lymph node, negative for malignancy (0/1) E. Lymph node, station 5, excision: - One lymph node, negative for malignancy (0/1) F. Lymph node, station 5 bundle, excision: - One lymph node, negative for malignancy (0/1) G. Lymph node, station 11, excision: - One lymph node, negative for malignancy (0/1) H. Lung, left apical posterior segment, segmentectomy: - Invasive adenocarcinoma, acinar predominant, with minor lepidic, papillary, and filigree micropapillary patterns - Invasive component measures 1.9 cm on glass slides - Invasive and lepidic component measures 2.2 cm on glass slides - Bronchovascular and parenchymal resection margins negative for carcinoma - Two hilar lymph nodes, negative for carcinoma (0/2) axwe/09/21/2024 15:49 By this signature, I attest that the above diagnosis is based upon my personal examination of the slides(and/or other material indicated in the diagnosis). Scottie Moulton M.D. Report Electronically Reviewed and Signed Out By Scottie Moulton M.D. 09/22/2024 11:53:53 Mejia Diaz M.D., PhD History: The patient is a 73-year-old woman with a lung nodule. Operative procedure: Segmentectomy. Specimen(s) Received: A: Node level 9A B: Level 8 node C: Node level 9b bundle D: Node level 10 E: Node level 5 F: Node level 5 bundle G: Node level 11 H: Left apica posterior segmentectomy Gross Description: Received in eight formalin jars labeled with the patient's identifiers. A. Labeled node level 9A is a 0.6 x 0.3 x 0.3 cm putative black lymph node with minimal attached yellow adipose tissue. The specimen is bisected and entirely submitted in cassette A1. Jar 0. B. Labeled level 8 node is a 0.7 x 0.3 x 0.5 cm putative black lymph node with minimal attached yellow-butler adipose tissue. The specimen is entirely submitted in cassette B1. Jar 0. C. Labeled level 9B bundle are two fragments of disrupted black butler lymph node with minimal attached yellow-butler adipose tissue, 1.1 x 0.7 x 0.3 cm and 0.5 x 0.3 x 0.3 cm. The fragments are submitted as received, each intact, in cassette C1. Jar 0. D. Labeled node level 10 is a 1.7 x 0.5 x 0.3 cm putative black lymph node. The specimen is sectioned and entirely submitted in cassette D1. Jar 0. E. Labeled node level 5 is a 0.9 x 0.6 x 0.4 cm black putative disrupted lymph node with minimal attached adipose tissue. The specimen is bisected and entirely submitted in cassette E1. Jar 0. F. Labeled node level 5 bundle is a single black lymph node 2.1 x 0.7 x 0.5 cm in greatest dimension. Palpation and sectioning reveals no second lymph node. The lymph node is sectioned and entirely submitted in cassette F1. Jar 0. G. Labeled node level 11 is a 0.9 x 0.6 x 0.3 cm black putative lymph node. The specimen is entirely submitted in cassette G1. Jar 0. H. Labeled left apical posterior segmentectomy is a 9.6 x 5.5 x 4.1 cm portion of lung with a single staple line 10.2 cm in length. The pleura is brown-butler and slightly wrinkled with the exception of a 1.5 x 1.1 cm area of puckering, now inked blue. The staple line is removed and the underlying surface is inked purple. Within the stapled parenchymal margin, a stapled bronchovascular margin is identified. The staple line is removed and the margins are shaved. The specimen is sectioned perpendicular to the parenchymal resection margin to show a 2.6 x 2.1 x 1.8 cm lesion with a multicystic cut surface with cysts ranging from 0.1-1.4 cm. There is no obvious solid component. Some of the cysts appear to be filled with blood. The lesion has indistinct irregular borders and comes to within 0.1 cm of the overlying pleura, 0.5 cm to the parenchymal resection margin, and 1.6 cm of the bronchovascular margin. The remaining lung parenchyma is brown-butler spongy and with scattered small punctate indistinct hemorrhages. H1 Bronchovascular within parenchymal margin H2-H3 Lesion in relation to overlying pleura and parenchymal resection margin H4-H7 Remainder of lesion H8 Uninvolved lung Jar 3. 09/17/2024 18:21 Gross Resident:Sebastien Nicolas M.D. CANCER CASE SUMMARY FOR TUMORS OF THE LUNG Procedure: Segmentectomy Specimen laterality: Left Synchronous Tumors: Not applicable Tumor site: Upper lobe Total Tumor Size Inclusive of Invasive and Lepidic Components: Greatest dimension: 2.2 x 2.0 cm Invasive Tumor Size: Greatest dimension: 1.9 x 1.6 cm Tumor focality: Single focus Histologic type: Invasive adenocarcinoma, acinar predominant Other subtypes present: Lepidic, papillary, micropapillary Histologic grade: G2: Moderately differentiated Spread Through Air Spaces: Not identified Visceral pleura invasion: Not identified Lymphovascular Invasion: Not identified Direct Invasion of Adjacent Structures: Not identified Margins: All margins are uninvolved by carcinoma Margins examined (specify): Parenchymal, bronchial, vascular Closest Margin(s) to Invasive Carcinoma: Parenchymal 0.5 Treatment effect: No known presurgical therapy Regional lymph nodes: Lymph Node(s) from Prior Procedures: No known prior lymph node sampling performed Lymph Node Examination: All regional lymph nodes negative for tumor Roshan Site(s) Examined: Number of lymph nodes examined: 11 Left Roshan Stations Examined- 5: Subaortic/aortopulmonary (AP)/AP window Left Roshan Stations Examined- 8L: Para-esophageal Left Roshan Stations Examined- 9L: Pulmonary ligament Left Roshan Stations Examined- 10L: Hilar Left Roshan Stations Examined- 11L: Interlobar Left Roshan Stations Examined- specimen hilar Distant Metastasis: Distant site(s) involved, if applicable (select all that apply) Not applicable Pathologic Stage Classification (pTNM, AJCC 8th Edition): Primary tumor (pT): pT1: Tumor <=3 cm in greatest dimension, surrounded by lung or visceral pleura, without bronchoscopic evidence of invasion more proximal than the lobar bronchus (ie, not in the main bronchus) pT1b: Tumor >1 cm, but <=2 cm in greatest dimension pN Category: pN0: No regional lymph node metastasis pM Category: Not applicable - pM cannot be determined from the submitted specimen(s) The pathologic stage assigned here should be regarded as provisional, and may change after integration of clinical data not provided with this specimen. CAP VERSION: Lung 4.3.0.1 By this signature, I attest that the above diagnosis is based upon my personal examination of the slides(and/or other material). Addenda/Procedures The performance characteristics of some immunohistochemical stains, fluorescence in-situ hybridization tests and immunophenotyping by flow cytometry cited in this report (if any) were determined by the Surgical Pathology and Flow Cytometry Departments at [facility] as part of an ongoing quality specialist program and in compliance with federally mandated regulations drawn from the Clinical Laboratory Improvement Act of 1988 (CLIA '88). Some of these tests rely on the use of analyte specific reagents and are subject to specific labeling requirements by the US Food and Drug Administration. Such diagnostic tests may only be performed in a facility that is certified by the Department of Health and Human Services as a high complexity laboratory under CLIA '88. The FDA has determined that such clearance or approval is not necessary. This test is used for clinical purposes. It should not be regarded as investigational or for research. Nevertheless, federal rules concerning the medical use of analyte specific reagents require that the following disclaimer be attached to the report: This test was developed and its performance characteristics determined by the Surgical Pathology and Flow Cytometry Departments of [facility]. It has not been cleared or approved by the U. S. Food and Drug Administration. IMAGES AND SCANNED DOCUMENTS, IF INCLUDED, ONLY VIEWABLE IN PDF VERSION OF REPORT Kamille Marie MD LAB PATHOLOGY ORDERABLES Final Result PATHOLOGY [facility] 3rd Floor [place], [place] [phone] * SD AN PROCEDURE PLACEHOLDER (09/16/2024 12:37 PM CDT) Narrative Edward Valdovinos MD - 09/16/2024 12:37 PM CDT Edward Valdovinos MD 09/16/2024 12:37 PM Peripheral IV Catheter Patient location: OR Staff: Placed by: Anesthesiologist: Edward Valdovinos MD PIV line: Laterality: right Site: hand Catheter size: 18 g Technique: anatomical landmarks Procedure details: good blood return Number of attempts: 1 Assessment: Events: patient tolerated procedure well with no complications Edward Valdovinos MD ANESTHESIA ORDERABLES Fi nal Result * SD AN ELECTIVE ENDOTRACHEAL AIRWAY, SD AN PROCEDURE PLACEHOLDER (09/16/2024 12:37 PM CDT) Narrative Edward Valdovinos MD - 09/16/2024 12:37 PM CDT Edward Valdovinos MD 09/16/2024 12:37 PM Airway Patient location: OR Urgency: elective Indications for airway management: anesthesia Difficult airway: no Staff: Placed by: Anesthesiologist: Edward Valdovinos MD Emergent airway documentation: Risks and benefits discussed: yes Consent obtained: yes Consent given by: patient Airway prep: Preoxygenated: yes Patient position: sniffing MILS maintained throughout: yes Mask difficulty assessment: 0 - not attempted Spontaneous ventilation during airway: absent Sedation level during airway: GA Final airway details: Final airway type: endotracheal airway Tube type: ETT - double lumen left ETT double lumen: 37 fr Cuffed: yes Technique used for successful ETT placement: video laryngoscopy Devices/Methods used in placement: intubating stylet Insertion site: oral Video blade type: Pruett Blade size: 3 Cormack-Lehane (video): grade I - full view of glottis Cuff inflated with: air Placement verified by: CO2 detection Airway secured with: silk tape Number of attempts: 1 us Edward Valdovinos MD ANESTHESIA ORDERABLES Fi nal Result * Check Sample (09/16/2024 11:18 AM CDT) ABO Rh B Positive [facility] OTHER 09/16/2024 11:1 8 AM CDT 09/16/2024 1:07 PM CDT Kamille Marie MD LAB BLOOD ORDERABLES Fin al Result NIC[facility] [place] [address] [facility] from Last 3 Months Insurance [place] [employer] Advance Directives For more information, please contact: [phone] Documents on File Type Date Recorded 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 DIRECTIVE 11/09/2015 12:00 AM 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 [employer] FINANCIAL/MEDICAL * Full Code (Latest Code Status on File) Date Activated Date Inactivated Comments 09/16/2024 9:05 PM 09/18/2024 9:42 PM * Full Code Date Activated Date Inactivated Comments 05/29/2023 11:48 AM 05/30/2023 9:43 PM Care Teams Fender Mechanic Relationship Specialty Start Date End Date Bartolo Yeager MD [address] [facility] [address] [place] [address] PCP - General Family Medicine 04/16/23 Della Sen PA [address] [facility] [address] [place] [address] [place] [id number] Physician Proprietary Trader Orthopedic Surgery 05/30/23
--- OUTSIDE RECORDS SUMMARY | 2024-12-16 16:48 | XMS_ITS | Clinical Summary ---
Author Organization [facility] Address [address] [place] [address] Care Team Providers Care Molding Machine Setter Name Role Phone Bartolo Yeager MD Primary Care Provider [phone] Source Comments [facility],non-owned Affiliates and Associated Physician Practices is amultiple site organization consisting of ambulatory clinics and hospital sitesin [place], [place], [place] and [place]. This disclosure is being madepursuant to the Care Everywhere program and may not contain all information available regarding this patient. Last updated 18.[facility] Allergies Active Allergy Reactions Criticality Noted Date Comments Penicillins Angioedema High 12/15/2018 Throat swelled Medications * Be aware that medications may not be up to date on this document. Alwaysverify current medications with the patient. ADDERALL XR 10 MG capsule 15 mg every morning 0 9 Active PREMARIN 0.45 MG tablet TK 1 T PO QD 2 9 Active pantoprazole EC (PROTONIX) 40 MG tablet at bedtime 2 9 Active tolterodine ER 24hr (DETROL LA) 4 MG capsule TK 1 C PO QD 5 9 Active CHANTIX CONTINUING MONTH JAUN 1 MG tablet TK 1 T PO BID AFTER MEALS WITH GLASS OF WATER 5 9 Active polyethylene glycol 3350 (MIRALAX) powder Mix the entire bottle with 64 oz of a clear liquid. Use as directed by the office for colonoscopy prep. 7 Active naproxen (NAPROSYN) 250 MG tablet Take 250 mg by mouth 2 times daily Active loratadine (CLARITIN) 10 MG tablet Take 10 mg by mouth once daily Active oxyCODONE, immediate release, (ROXICODONE) 5 MG tablet Take 1 tablet by mouth every 6 hours as needed 20 tablet 9 Active Active Problems Problem Noted Date Diagnosed Date Primary cancer of bronchus of right lower lobe 0 12/17/2018 Family History Medical History Relation Name Comments CAD (Coronary Artery Disease) Father Lung Disease Paternal Grandmother Cancer - Lung Sister Relation Name Status Comments Father Paternal Grandmother Sister Social History Tobacco Use Types Packs/Day Years Used Date Smoking Tobacco: Former Cigarettes 1 968 - 10/26/2018 Smokeless Tobacco: Never Tobacco Cessation:Ready to Q uit: Yes; Counseling Given: Yes Alcohol Use Standard Drinks/Week Comments Yes 4 (1 standard drink = 0.6 oz pur e alcohol) occasional Comments Unknown Sex and Gender Information Value Date Recorded Sex Assigned at Not on file Legal Sex Female 4:45 AM CDT Gender Identity Not on file Sexual Orientation Not on file Last Filed Vital Signs Vital Sign Reading Time Taken Comments Blood Pressure 121/74 12/30/2018 2:40 PM CDT Pulse 94 12/30/2018 2:40 PM CDT Temperature 37.1 C (98.7 F) 12/30/2018 2:40 PM CDT Respiratory Rate 17 12/19/2018 8:22 AM CDT Oxygen Saturation 96% 12/30/2018 2:40 PM CDT Inhaled Oxygen Concentration 21% 12/17/2018 4 :18 PM CDT Weight 76.7 kg (169 lb) 12/30/2018 2:40 PM CDT Height 166.4 cm (5' 5.5) 12/30/2018 2:40 PM CDT Body Mass Index 27.7 12/30/2018 2:40 PM CDT Plan of Treatment Health Maintenance Due Date Last Done Comments BONE DENSITY TESTING 1950 COLOGUARD (AGES 45-75) - COL ON CA SCREENING 1950 COLON MONITORING 1950 COLONOSCOPY - COLON CA SCREENING 1950 CT COLONOGRAPHY - COLON CA SCREENING 1950 Colorectal Cancer Screening 1950 FIT - COLON CA SCREENING 1950 FLEX SIG - COLON CA SCREENING 1950 LIPID TESTING 1950 MAMMOGRAM 1950 HEPATITIS C SCREENING 10/17/1968 DTAP/TDAP/TD VACCINES (1 - Tdap) 1969 PNEUMOCOCCAL VACCINE 50+ (1 of 1 - PCV) 2000 ZOSTER VACCINE (1 of 2) 2000 SCREENING FOR DIABETES 12/18/2021 12/18/2018 COVID-19 VACCINE (1 - 2023-2 5 season) 2023 DEPRESSION SCREENING 04/14/2024 INFLUENZA VACCINE (#1) 2024 Respiratory Syncytial Virus (RSV) Vaccine Pt: or over 60 yrs (1 - 1-dose 75+ series) 2025 HEPATITIS B VACCINE Aged Out No longe r eligible based on patient's age to complete this topic HIB VACCINE Aged Out No longer eligi ble based on patient's age to complete this topic HPV VACCINE Aged Out No longer eligi ble based on patient's age to complete this topic MENINGOCOCCAL (Group B) VACC INE SHARED DECISION-MAKING Aged Out No longer eligibl e based on patient's age to complete this topic MENINGOCOCCAL GROUPS A/C/Y/W VACCINE Aged Out No longer eligible b ased on patient's age to complete this topic Procedures Procedure Name Priority Date/Time Associated Diagnosis Comments BASIC METABOLIC PANEL (CALCIUM TOTAL) AM Draw 12/18/2018 4:07 AM CDT from Last 3 Months or Most Recently Relevant to Health Maintenance Results * (ABNORMAL) BASIC METABOLIC PANEL (CALCIUM TOTAL) (12/18/2018 4:07 AM CDT) Glucose 141(H) 74 - 106 mg/dL 12/18/2018 4:[address] [facility] Sodium 137 136 - 145 mmol/L 12/18/2018 4:[address] [facility] Potassium 3.9 3.5 - 5.1 mmol/L 12/18/2018 4:[address] [facility] Chloride 104 98 - 107 mmol/L 12/18/2018 4:[address] [facility] CO2 25 23 - 31 mmol/L 12/18/2018 4:[address] [facility] Calcium 9.2 8.4 - 10.2 mg/dL 12/18/2018 4:59 AM CDT [facility] Anion Gap 8 8 - 16 mmol/L 12/18/2018 4:[address] [facility] BUN 8(L) 9.8 - 20.1 mg/dL 12/18/2018 4:59 AM CDT [facility] Creatinine 0.65 0.55 - 1.02 mg/dL 12/18/2018 4:59 AM CDT [facility] eGFR by MDRD >60 >60 mL/min/1.7 2 12/18/2018 4:59 AM CDT [facility] eGFR by MDRD >60 >60 mL/min/1.7 3m2 12/18/2018 4:[address] [facility] Blood BLOOD SPECIMEN / Unknown Lab Venipuncture / Unknown 12/18/2018 4:07 AM CDT 12/18/2018 4:31 AM CDT Steve Lopez MD LAB - CHEMISTRY ORDERABLES F inal Result 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
--- OUTSIDE RECORDS SUMMARY | 2024-12-16 16:48 | XMS_ITS | Encounter Summary ---
Author Organization [facility] Care Team Providers Care Web Designer Name Role Phone No, Physician Primary Care Provider [phone] Bartolo Yeager MD Primary Care Provider Della Sen Unavailable [phone] Encounter Details Date Type Department Care Team (Latest Contact Info) Description 11/02/2015 Orders Only [facility]INCON[facility] Provider, MD Jevon [address] [place] [id number] Social History Tobacco Use Types Packs/Day Years Used Date Smoking Tobacco: Never Assessed Comments Unknown Sex and Gender Information Value Date Recorded Sex Assigned at Not on file Legal Sex Female 9:07 PM BRICK SETTER OPERATOR Gender Identity Female 03/19/2023 11:00 AM BRICK SETTER OPERATOR Sexual Orientation Straight 03/19/2023 11 :00 AM BRICK SETTER OPERATOR documented as of this encounter Plan of Treatment Not on file documented as of this encounter Procedures Procedure Name Priority Date/Time Associated Diagnosis Comments PROCEDURE - RESULT 11/03/2015 12 :00 AM CDT documented in this encounter Results * PROCEDURE - RESULT (11/03/2015 12:00 AM CDT) Narrative 11/03/2015 12:00 AM CDT Ordered by an unspecified provider. us Historical Provider Final Res ult documented in this encounter Visit Diagnoses Not on filedocumented in this encounter Care Teams Web Designer Relationship Specialty Start Date End Date No, Physician PCP - General 03/18/23 04/15/23 Bartolo Yeager MD [address] [facility] [address] [facility] [address] [place] [address] PCP - General Family Medicine 04/16/23 Della Sen PA [address] [address] Physician Playground Official Orthopedic Surgery 05/30/23 documented as of this encounter
[2024-12-16 17:32] LABS: Hematocrit 37.7 % (37.0-47.0); Hemoglobin 12.0 g/dL (12.0-15.0); Mean Corpuscular HGB Conc 31.8 g/dl (32-36); Mean Corpuscular Hemoglobin 29.3 pg (26-34); Mean Corpuscular Volume 92.2 fl (80-100); Platelet Count Result 300 k/mm3 (150-375); Red Blood Count 4.09 M/mm3 (4.2-5.4); White Blood Count 9.3 K/mm3 (4.5-10.0)
[2024-12-16 17:47] LABS: Alanine Aminotransferase 14 U/L (6-35); Albumin Level 4.6 g/dL (3.5-5.1); Alkaline Phosphatase 63 U/L (38-126); Anion Gap 8 mmol/L (4-12); Aspartate Amino Transferase 27 U/L (14-36); Bilirubin,Total 0.4 mg/dL (0.2-1.3); Blood Urea Nitrogen 16 mg/dL (7-17); Calcium 9.7 mg/dL (8.4-10.2); Carbon Dioxide 28 mmol/L (22-30); Chloride 101 mmol/L (98-107); Estimated Glomerular Filt Rate > 60; Glucose 90 mg/dL (65-110); Potassium 3.7 mmol/L (3.4-5.0); Sodium 137 mmol/L (137-145); Total Protein 8.1 g/dL (6.3-8.2)
[2024-12-16 18:20] LABS: Add Urine Microscopic? YES; Appearance Urine Cloudy (Clear); Glucose Urine UA Negative (Negative); Leukocyte Esterase Ur 3+ LEU/UL (Negative); Nitrate Urine Negative (Negative); Non Pathogenic Casts 0-2; Specific Grav Ur 1.011 (1.001-1.035)
== END 2024-12-16 16:46 | disposition home or self-care (01) ==
LOC: ANHLAB 16:46
PROVIDERS: PCP Family Medicine; Visit Provider Physician Assistant Medical
DX: R30.0 Dysuria (principal); M54.9 Dorsalgia, unspecified
CPT/HCPCS: 36415; 80053; 81001; 85027; 87086

== ENCOUNTER 2024-12-27 13:18 | Outpatient (CLI) | payer BC, SELFPAY ==
--- NOTE | ~2024-12-27 | XR_ITS ---
EXAM/ PROCEDURE: XR lumbar spine 2-3V - 12/27/2024 13:22 CDT HISTORY: 74 years old Female with M54.50 - Low back pain, unspecified COMPARISON: None available TECHNIQUE: Three view(s) FINDINGS/ IMPRESSION: There are no fractures or dislocations.Multilevel degenerative changes are seen. Intervertebral disc space narrowing at T12-L1 and L4-5 intervertebral disc spaces. Reviewed, dictated and finalized at location N.
== END 2024-12-27 13:19 | disposition home or self-care (01) ==
LOC: MICIMG 13:19
PROVIDERS: PCP Family Medicine; Visit Provider Physician Assistant Medical
DX: M54.50 Low back pain, unspecified (principal)
CPT/HCPCS: 72100